=== PATIENT | female | born 1960 | race Caucasian/White ===

== ENCOUNTER 2020-04-09 12:07 | Emergency (ER) | payer OTHER ==
[~2020-04-09] VITALS: Ht 157.5 cm; Wt 64.9 kg
[2020-04-09 12:34] LABS: ICTOTEST (BILI CONFIRMATORY) Negative (Negative); URINE BILIRUBIN NEGATIVE (Negative); URINE BLOOD NEGATIVE (Negative); URINE CLARITY CLEAR; URINE COLOR YELLOW; URINE GLUCOSE-RANDOM* NEGATIVE (Negative); URINE KETONES TRACE (Negative); URINE LEUKOCYTES-REFLEX NEGATIVE (Negative); URINE NITRITE-REFLEX NEGATIVE (Negative); URINE PROTEIN (DIPSTICK) 1+ (Negative); URINE SPECIFIC GRAVITY >= 1.030 (1.005-1.035)
[2020-04-09 12:35] LABS: SQUAMOUS 4-10 Moderate /LPF (0-3)
[2020-04-09 12:36] LABS: BACTERIA-REFLEX None Seen /HPF (None Seen); CASTS None Seen /LPF (None Seen); CRYSTALS None Seen /LPF (None Seen); URINE RBC 0-2 Rare /HPF (0-2); URINE WBC-REFLEX None Seen /HPF (0-5)
[2020-04-09 13:37] LABS: ABSOLUTE NEUTROPHILS 4.7 thou/uL (1.4-8.2); BASOPHILS 0.8 % (0.0-2.0); EOSINOPHILS 0.3 % (0.0-3.0); HEMATOCRIT 41.5 % (37.0-47.0); HEMOGLOBIN 13.9 gm/dL (12.0-15.0); LYMPHOCYTES 20.3 % (24.0-44.0); MCH 30.8 pg (26.0-34.0); MCHC 33.4 g/dL (28.0-37.0); MCV 92.3 fL (80.0-100.0); MONOCYTES 5.9 % (1.0-8.0); PLATELET COUNT 391 thou/uL (150-400); POLYS 72.7 % (36.0-66.0); RBC 4.49 mil/uL (4.20-5.00); RDW 14.5 % (10.5-14.5); WBC 6.5 thou/uL (4.0-11.0)
[2020-04-09 13:53] LABS: ANION GAP 8 mmol/L (7-16); BUN 8 mg/dL (7-18); CALCIUM 9.2 mg/dL (8.5-10.1); CHLORIDE 94 mmol/L (98-107); CO2 26 mmol/L (21-32); CREATININE 1.1 mg/dL (0.6-1.0); GLUCOSE 94 mg/dL (74-106); POTASSIUM 3.9 mmol/L (3.5-5.1); SODIUM 128 mmol/L (136-145)
[2020-04-09 14:04] LABS: ALBUMIN 4.5 g/dL (3.4-5.0); AMYLASE 103 U/L (25-115); DIRECT BILIRUBIN < 0.1 mg/dL (<0.1-0.2); LIPASE 98 U/L (73-393); SGOT 16 U/L (15-37); SGPT 21 U/L (30-65); TOTAL BILIRUBIN 0.4 mg/dL (0.2-1.0); TOTAL PROTEIN 7.8 g/dL (6.4-8.2); TROPONIN-I <0.06 ng/mL (<0.06)
[2020-04-09 14:15] VITALS: BP 123/79
[2020-04-09] MEDS ORDERED: AZITHROMYCIN 2250 MG PO (16:14)
[2020-04-09] MEDS ORDERED: NEXIUM40 MG PO (16:14)
[2020-04-09] MEDS ORDERED: ZOFRAN ODT4 MG PO (16:14)
--- NOTE | 2020-04-09 16:23 | EKG ---
[address] [address] ELECTROCARDIOGRAM REPORT Name: ALBERTINA ENCARNACION Room #: [facility] Brandyn#: [id number] Admission: 04/09/20 Attend Phys: Discharge: Date of : 58 Report #: [id number] [facility] ED Test Date: 2020-04-09 Test Time: 14:15:53 Pat Name: ALBERTINA ENCARNACION Department: Room: Gender: F Permanent Waver: [place] : 1960 Requested By: Jenaro Fisher Order Number: [id number] MD: Lambert Alvarez Measurements Intervals [place] Rate: 71 P: 55 NM: 177 QRS: 49 QRSD: 95 T: 33 QT: 407 QTc: 443 Interpretive Statements Sinus rhythm No previous ECG available for comparison Electronically Signed On 04-09-2020 16:23:04 INTERNET PROGRAMMER by Lambert Alvarez [email or web address] <ELECTRONICALLY SIGNED> By: Lambert Alvarez MD, LOCATED WITHIN [facility] 04/09/20 1623 1415 1415 Lambert Alvarez MD, FACC /EPI
== END 2020-04-09 16:42 | disposition home or self-care (01) ==
LOC: ER 12:07
PROVIDERS: Emergency Medicine
DX: E87.1 Hypo-osmolality and hyponatremia (principal); J18.9 Pneumonia, unspecified organism; Z90.49 Acquired absence of other specified parts of digestive tract; Z90.710 Acquired absence of both cervix and uterus; Z20.822 Contact with and (suspected) exposure to COVID-19